=== PATIENT | male | born 1985 | race African-American/Black ===

== ENCOUNTER 2019-03-25 02:47 | Emergency (ER) | payer MEDICAID ==
[~2019-03-25] VITALS: Ht 177.8 cm; Wt 180.0 kg
[2019-03-25 04:03] LABS: HEMATOCRIT. 48.8 % (42.0-52.0); HEMOGLOBIN. 16.2 g/dL (14.0-18.0); MEAN CORPUSCULAR HEMOGLOBIN 30.5 pg (28.0-32.0); MEAN PLATELET VOLUME 7.8 fl (7.4-10.4); PLATELET 215 x1000/uL (130-400); RED BLOOD CELL COUNT 5.31 mill/uL (4.7-6.1)
[2019-03-25 04:06] LABS: CHLORIDE 106 mEq/L (98-107)
[2019-03-25 04:10] LABS: ETHANOL BLOOD 238 mg/dL
[2019-03-25 04:14] LABS: CREATINE KINASE 163 IU/L (39-308)
[2019-03-25 06:36] LABS: PLATELET ESTIMATE NORMAL
[2019-03-25 09:25] VITALS: BP 136/85
== END 2019-03-25 10:05 | disposition home or self-care (01) ==
LOC: ER 03:22 → EDBD 03:22 → ER 10:05
DX: F10.129 Alcohol abuse with intoxication, unspecified (principal); Y90.7 Blood alcohol level of 200-239 mg/100 ml; R07.9 Chest pain, unspecified; R03.0 Elevated blood-pressure reading, without diagnosis of hypertension; R06.83 Snoring; J84.9 Interstitial pulmonary disease, unspecified; F12.90 Cannabis use, unspecified, uncomplicated; Z59.0 Homelessness
CPT/HCPCS: 36415; 70450; 71045; 80053; 80320; 82550; 82962; 85025; 99284; Z7610; G0480